=== PATIENT | female | born 1945 | race Caucasian/White ===

== ENCOUNTER 2017-04-20 22:00 | Inpatient (IN) | payer OTHER ==
[~2017-04-20] VITALS: Ht 139.7 cm; Wt 86.7 kg
[~2017-04-20 22:00] MED LIST: ENDOCET 5-3251 EACH PO; Motrin PO; Sudafed PO; Xalatan 0.005% Ophth BOTH EYES
[2017-04-20 22:48] LABS: BASOPHIL (%) 0.5 % (0-1); EOSINOPHIL (%) 2.2 % (0-5); EOSINOPHIL COUNT 0.2 K/uL (0-0.3); HEMATOCRIT 41.6 % (36.0-46.0); HEMOGLOBIN 14.2 G/DL (11.9-15.5); IMMATURE GRANULOCYTE (%) 0.3 % (0.0-0.7); LYMPHOCYTE COUNT 2.1 K/uL (1.0-2.8); MCH 31.3 PG (29.0-34.0); MCHC 34.1 G/DL (30.0-36.0); MCV 91.8 FL (83-99); MONOCYTE (%) 6.7 % (3-12); MONOCYTE COUNT 0.5 K/uL (0-0.8); NEUTROPHIL (%) 63.3 % (45-76); NEUTROPHIL COUNT 4.8 K/uL (1.8-6.4); PLATELET COUNT 208 K/uL (156-360); RBC DIS.WIDTH-CV 12.9 % (11.8-14.6); RBC DIS.WIDTH-SD 43.8 % (39-53); RED BLOOD COUNT 4.53 M/uL (3.80-5.20); WHITE BLOOD COUNT 7.6 K/uL (4.1-10.2)
[2017-04-20 22:57] LABS: CHLORIDE 110 mEq/L (99-109); POTASSIUM 3.5 mEq/L (3.7-5.4); SODIUM 145 mEq/L (136-147)
[2017-04-20 22:58] LABS: MAGNESIUM 2.1 mg/dL (1.3-2.7)
[2017-04-20 22:59] LABS: GLUCOSE 137 mg/dL (70-99)
[2017-04-20 23:03] LABS: CREATININE 0.9 mg/dL (0.6-1.3); GFR ESTIMATE (CALCULATED) > 59 mL/min/
[2017-04-20 23:04] LABS: UREA NITROGEN (BUN) 15 mg/dL (9-23)
[2017-04-20 23:07] LABS: TROP-I INTERPRETATION NEGATIVE; TROPONIN-I 0.03 ng/mL (0.0-0.30)
[2017-04-21 00:37] LABS: INTER. NORMALIZED RATIO 0.9
[2017-04-21 00:40] LABS: PTT 31.3 SEC (25-37)
[2017-04-21] MEDS ORDERED: ASPIRIN EC325 MG PO (01:18)
[2017-04-21 01:37] LABS: HDL CHOLESTEROL 64 MG/DL (Desirable>=50); LDL CHOLESTEROL 106 mg/dL (Desirable<100); NON-HDL CHOLESTEROL 129 mg/dL (Desirable<160); TOTAL CHOLESTEROL 193 mg/dL (Desirable<200); TRIGLYCERIDES 113 MG/DL (Normal: <150)
[2017-04-21 05:26] LABS: APPEARANCE CLEAR ((CLEAR)); BILIRUBIN NEGATIVE; BLOOD NEGATIVE; COLOR COLORLESS ((YELLOW)); GLUCOSE (STRIP) NEGATIVE; KETONES NEGATIVE; LEUKOCYTES NEGATIVE; NITRITE NEGATIVE; PROTEIN (STRIP) NEGATIVE; SPECIFIC GRAVITY 1.011 (1.000-1.030); UROBILINOGEN 0.2 MG/DL (0.2-1.0)
[2017-04-21 07:41] LABS: HEMOGLOBIN A1c (GLYCOHEMOGLOB) 5.3 % HGB (Below 5.7)
[2017-04-21 08:10] LABS: THYROTROPIN (TSH) 3.9 MIU/L (0.4-5.5)
[2017-04-21 13:27] LABS: TROP-I INTERPRETATION NEGATIVE; TROPONIN-I 0.02 ng/mL (0.0-0.30)
[2017-04-21 18:46] LABS: TROP-I INTERPRETATION NEGATIVE; TROPONIN-I 0.03 ng/mL (0.0-0.30)
[2017-04-21 19:14] VITALS: BP 147/67
[2017-04-21 23:36] VITALS: BP 129/73
[2017-04-22 01:18] LABS: TROP-I INTERPRETATION NEGATIVE; TROPONIN-I 0.03 ng/mL (0.0-0.30)
[2017-04-22 02:53] LABS: BASOPHIL (%) 0.6 % (0-1); BASOPHIL COUNT 0.1 K/uL (0-0.1); EOSINOPHIL (%) 1.3 % (0-5); EOSINOPHIL COUNT 0.1 K/uL (0-0.3); HEMATOCRIT 43.7 % (36.0-46.0); HEMOGLOBIN 14.7 G/DL (11.9-15.5); IMMATURE GRANULOCYTE (%) 0.3 % (0.0-0.7); LYMPHOCYTE (%) 23.2 % (15-42); LYMPHOCYTE COUNT 2.3 K/uL (1.0-2.8); MCH 30.5 PG (29.0-34.0); MCHC 33.6 G/DL (30.0-36.0); MCV 90.7 FL (83-99); MONOCYTE (%) 6.7 % (3-12); MONOCYTE COUNT 0.7 K/uL (0-0.8); NEUTROPHIL (%) 67.9 % (45-76); NEUTROPHIL COUNT 6.8 K/uL (1.8-6.4); PLATELET COUNT 228 K/uL (156-360); RBC DIS.WIDTH-SD 43.2 % (39-53); RED BLOOD COUNT 4.82 M/uL (3.80-5.20)
[2017-04-22 03:32] LABS: CHLORIDE 108 mEq/L (99-109); POTASSIUM 3.5 mEq/L (3.7-5.4); SODIUM 145 mEq/L (136-147)
[2017-04-22 03:35] VITALS: BP 115/58
[2017-04-22 03:44] LABS: GLUCOSE 103 mg/dL (70-99)
[2017-04-22 03:45] LABS: TOTAL PROTEIN 6.2 g/dL (6.4-8.3)
[2017-04-22 03:48] LABS: ALKALINE PHOSPHATASE 80 IU/L (3-129); CREATININE 0.8 mg/dL (0.6-1.3); GFR ESTIMATE (CALCULATED) > 59 mL/min/
[2017-04-22 03:49] LABS: UREA NITROGEN (BUN) 13 mg/dL (9-23)
[2017-04-22 03:50] LABS: AST (GOT) 18 IU/L (2-34)
[2017-04-22 03:51] LABS: ALT (GPT) 12 IU/L (3-49)
[2017-04-22 07:32] VITALS: BP 107/55
[2017-04-22 12:03] VITALS: BP 150/67
[2017-04-22 15:29] VITALS: BP 115/55
[2017-04-22 20:00] VITALS: BP 121/67
[2017-04-22 23:45] VITALS: BP 140/65
[2017-04-23 04:27] VITALS: BP 117/58
[2017-04-23 07:02] LABS: BASOPHIL (%) 0.6 % (0-1); BASOPHIL COUNT 0.1 K/uL (0-0.1); EOSINOPHIL (%) 1.7 % (0-5); EOSINOPHIL COUNT 0.1 K/uL (0-0.3); HEMATOCRIT 44.6 % (36.0-46.0); IMMATURE GRANULOCYTE (%) 0.4 % (0.0-0.7); LYMPHOCYTE (%) 20.9 % (15-42); LYMPHOCYTE COUNT 1.7 K/uL (1.0-2.8); MCH 30.7 PG (29.0-34.0); MCHC 33.6 G/DL (30.0-36.0); MCV 91.2 FL (83-99); MONOCYTE (%) 6.4 % (3-12); MONOCYTE COUNT 0.5 K/uL (0-0.8); NEUTROPHIL COUNT 5.8 K/uL (1.8-6.4); PLATELET COUNT 224 K/uL (156-360); RBC DIS.WIDTH-CV 12.9 % (11.8-14.6); RBC DIS.WIDTH-SD 42.6 % (39-53); RED BLOOD COUNT 4.89 M/uL (3.80-5.20); WHITE BLOOD COUNT 8.3 K/uL (4.1-10.2)
[2017-04-23 07:31] LABS: ALBUMIN 3.9 G/DL (3.2-4.8); ALKALINE PHOSPHATASE 73 IU/L (3-129); ALT (GPT) 11 IU/L (3-49); AST (GOT) 16 IU/L (2-34); CHLORIDE 106 MEQ/L (99-109); CREATININE 0.8 MG/DL (0.6-1.3); GFR ESTIMATE (CALCULATED) > 59 mL/min/; GLUCOSE 107 mg/dL (70-99); POTASSIUM 4.1 MEQ/L (3.7-5.4); SODIUM 143 MEQ/L (136-147); TOTAL PROTEIN 6.3 G/DL (6.4-8.3); UREA NITROGEN (BUN) 17 mg/dL (9-23)
[2017-04-23 08:19] VITALS: BP 123/63
[2017-04-23] MEDS ORDERED: ASPIR-LOW81 MG PO (08:19)
[2017-04-23] MEDS ORDERED: ELIQUIS5 MG PO (08:20)
[2017-04-23] MEDS ORDERED: PRAVASTATIN SOD80 MG PO (08:20)
== END 2017-04-23 10:34 | disposition home or self-care (01) | DRG 65 ==
LOC: EME 22:00 → EDOF 04-21 00:42 → 5SOUTH 04-21 00:42 → ENRESERV 04-21 00:54 → EDOF 04-21 01:14 → ENRESERV 04-21 01:15 → CANRESERV 04-21 10:31 → ENRESERV 04-21 11:06 → 5SOUTH 04-21 17:55
PROVIDERS: Emergency Medicine; Hospitalist
DX: I63.9 Cerebral infarction, unspecified (principal); Z68.41 Body mass index [BMI] 40.0-44.9, adult; I48.0 Paroxysmal atrial fibrillation; R47.01 Aphasia; R00.1 Bradycardia, unspecified; I10 Essential (primary) hypertension; H40.9 Unspecified glaucoma; E66.9 Obesity, unspecified; E87.6 Hypokalemia; I35.8 Other nonrheumatic aortic valve disorders; R29.810 Facial weakness; E78.5 Hyperlipidemia, unspecified; M19.90 Unspecified osteoarthritis, unspecified site; R47.02 Dysphasia; Z85.41 Personal history of malignant neoplasm of cervix uteri; Z82.49 Family history of ischemic heart disease and other diseases of the circulatory system; Z80.9 Family history of malignant neoplasm, unspecified
CPT/HCPCS: 70496; 70498; 70551; 71045; 80048; 80053; 80061; 81003; 83036; 83735; 84443; 84484; 85025; 85610; 85730; 90686; 92523 GN; 93005; 93306; 99281; 99285; G9162 GN CL; G9163 GN CJ; J1650; J7030; J7050

== ENCOUNTER 2017-09-10 10:25 | Inpatient (IN) | payer OTHER ==
[~2017-09-10] VITALS: Ht 162.6 cm; Wt 93.2 kg
[~2017-09-10 10:25] MED LIST changes: +ASPIR-LOW81 MG PO; +ASPIRIN EC325 MG PO; +ELIQUIS5 MG PO; +PRAVASTATIN SOD80 MG PO
[2017-09-10 11:06] LABS: APPEARANCE TURBID ((CLEAR)); BILIRUBIN NEGATIVE; BLOOD SMALL; COLOR AMBER ((YELLOW)); GLUCOSE (STRIP) 50; KETONES NEGATIVE; LEUKOCYTES SMALL; NITRITE NEGATIVE; PROTEIN (STRIP) 100; SPECIFIC GRAVITY 1.029 (1.000-1.030)
[2017-09-10 11:12] LABS: BASOPHIL (%) 0.2 % (0-1); BASOPHIL COUNT 0.1 K/uL (0-0.1); EOSINOPHIL (%) 0 % (0-5); HEMATOCRIT 45.2 % (36.0-46.0); HEMOGLOBIN 15.7 G/DL (11.9-15.5); IMMATURE GRANULOCYTE (%) 0.8 % (0.0-0.7); LYMPHOCYTE (%) 3.5 % (15-42); MCH 30.9 PG (29.0-34.0); MCHC 34.7 G/DL (30.0-36.0); MONOCYTE (%) 4.4 % (3-12); MONOCYTE COUNT 1.3 K/uL (0-0.8); NEUTROPHIL (%) 91.1 % (45-76); NEUTROPHIL COUNT 26.2 K/uL (1.8-6.4); PLATELET COUNT 207 K/uL (156-360); RBC DIS.WIDTH-CV 12.5 % (11.8-14.6); RBC DIS.WIDTH-SD 40.9 % (39-53); RED BLOOD COUNT 5.08 M/uL (3.80-5.20); WHITE BLOOD COUNT 28.8 K/uL (4.1-10.2)
[2017-09-10 11:20] LABS: INTER. NORMALIZED RATIO 2.2
[2017-09-10 11:22] LABS: ALBUMIN 4.2 g/dL (3.2-4.8); CHLORIDE 104 mEq/L (99-109); POTASSIUM 3.9 mEq/L (3.7-5.4); SODIUM 139 mEq/L (136-147)
[2017-09-10 11:25] LABS: GLUCOSE 160 mg/dL (70-99); TOTAL PROTEIN 7.4 g/dL (6.4-8.3)
[2017-09-10 11:27] LABS: TOTAL BILIRUBIN 1.7 mg/dL (0.0-1.0)
[2017-09-10 11:28] LABS: ALKALINE PHOSPHATASE 95 IU/L (3-129); CREATININE 0.9 mg/dL (0.6-1.3); GFR ESTIMATE (CALCULATED) > 59 mL/min/
[2017-09-10 11:29] LABS: UREA NITROGEN (BUN) 21 mg/dL (9-23)
[2017-09-10 11:30] LABS: AST (GOT) 57 IU/L (2-34)
[2017-09-10 11:31] LABS: ALT (GPT) 53 IU/L (3-49)
[2017-09-10 11:32] LABS: LIPASE 7 U/L (1.0-51.0)
[2017-09-10 11:32] LABS: EPITHELIAL CELLS 2+ /HPF; MUCUS NONE SEEN /LPF
[2017-09-10 11:33] LABS: BACTERIA 2+ /HPF
[2017-09-10 11:38] LABS: AMORPHOUS URATES CRYSTALS 2+
[2017-09-10] MEDS ORDERED: LO-DOSE ASPIRIN81 M1 PO (13:26)
[2017-09-10] MEDS ORDERED: METOPROLOL TART25 MG PO (13:27)
[2017-09-10] MEDS ORDERED: CENTURY ULTIMA1 EAC3 PO (13:27)
[2017-09-10] MEDS ORDERED: VITAMIN D31000 UNIT PO (13:29)
[2017-09-10] MEDS ORDERED: TYLENOL REGULA325 MG PO (13:29)
[2017-09-10 16:43] VITALS: BP 146/77
[2017-09-10 19:40] VITALS: BP 111/56
[2017-09-10 23:52] VITALS: BP 120/76
[2017-09-11 04:12] VITALS: BP 140/65
[2017-09-11 06:11] LABS: HEMATOCRIT 42.9 % (36.0-46.0); HEMOGLOBIN 14.4 G/DL (11.9-15.5); MCH 30.9 PG (29.0-34.0); MCHC 33.6 G/DL (30.0-36.0); MCV 92.1 FL (83-99); PLATELET COUNT 194 K/uL (156-360); RBC DIS.WIDTH-CV 13.1 % (11.8-14.6); RBC DIS.WIDTH-SD 44.1 % (39-53); RED BLOOD COUNT 4.66 M/uL (3.80-5.20); WHITE BLOOD COUNT 21.8 K/uL (4.1-10.2)
[2017-09-11 06:34] LABS: ALBUMIN 3.6 G/DL (3.2-4.8); ALKALINE PHOSPHATASE 140 IU/L (3-129); ALT (GPT) 233 IU/L (3-49); AST (GOT) 260 IU/L (2-34); CHLORIDE 107 MEQ/L (99-109); CREATININE 0.7 MG/DL (0.6-1.3); GFR ESTIMATE (CALCULATED) > 59 mL/min/; GLUCOSE 147 mg/dL (70-99); SODIUM 142 MEQ/L (136-147); TOTAL BILIRUBIN 1.5 MG/DL (0.0-1.0); TOTAL PROTEIN 5.9 G/DL (6.4-8.3); UREA NITROGEN (BUN) 22 mg/dL (9-23)
[2017-09-11 08:58] VITALS: BP 123/60
[2017-09-11 11:49] VITALS: BP 104/60
[2017-09-11 12:29] LABS: INTER. NORMALIZED RATIO 1.7
[2017-09-11 12:31] LABS: PTT 31.4 SEC (25-37)
[2017-09-11 17:11] VITALS: BP 128/73
[2017-09-11 19:15] VITALS: BP 131/67
[2017-09-11 23:20] VITALS: BP 108/54
[2017-09-12 03:52] VITALS: BP 112/55
[2017-09-12 06:14] LABS: HEMATOCRIT 40.5 % (36.0-46.0); HEMOGLOBIN 13.3 G/DL (11.9-15.5); MCH 30.1 PG (29.0-34.0); MCHC 32.8 G/DL (30.0-36.0); MCV 91.6 FL (83-99); PLATELET COUNT 202 K/uL (156-360); RBC DIS.WIDTH-CV 12.9 % (11.8-14.6); RBC DIS.WIDTH-SD 43.8 % (39-53); RED BLOOD COUNT 4.42 M/uL (3.80-5.20); WHITE BLOOD COUNT 13.2 K/uL (4.1-10.2)
[2017-09-12 06:37] LABS: ALBUMIN 3.1 G/DL (3.2-4.8); ALKALINE PHOSPHATASE 131 IU/L (3-129); ALT (GPT) 131 IU/L (3-49); CHLORIDE 108 MEQ/L (99-109); CREATININE 0.7 MG/DL (0.6-1.3); DIRECT BILIRUBIN 0.3 mg/dL (0.0-0.3); GFR ESTIMATE (CALCULATED) > 59 mL/min/; GLUCOSE 122 mg/dL (70-99); POTASSIUM 4.3 MEQ/L (3.7-5.4); SODIUM 141 MEQ/L (136-147); TOTAL PROTEIN 5.2 G/DL (6.4-8.3); UREA NITROGEN (BUN) 14 mg/dL (9-23)
[2017-09-12 06:41] LABS: AST (GOT) 68 IU/L (2-34); TOTAL BILIRUBIN 0.8 MG/DL (0.0-1.0)
[2017-09-12 08:20] VITALS: BP 102/56
[2017-09-12 12:29] VITALS: BP 139/73
[2017-09-12 17:22] VITALS: BP 95/53
[2017-09-12 20:32] VITALS: BP 110/58
[2017-09-13 00:21] VITALS: BP 106/58
[2017-09-13 05:00] VITALS: BP 140/84
[2017-09-13 05:57] LABS: HEMATOCRIT 39.8 % (36.0-46.0); HEMOGLOBIN 13.5 G/DL (11.9-15.5); MCH 30.8 PG (29.0-34.0); MCHC 33.9 G/DL (30.0-36.0); MCV 90.7 FL (83-99); PLATELET COUNT 250 K/uL (156-360); RBC DIS.WIDTH-CV 13.1 % (11.8-14.6); RBC DIS.WIDTH-SD 43.2 % (39-53); RED BLOOD COUNT 4.39 M/uL (3.80-5.20); WHITE BLOOD COUNT 9.1 K/uL (4.1-10.2)
[2017-09-13 06:40] VITALS: BP 145/67
[2017-09-13 06:43] LABS: ALBUMIN 3.1 G/DL (3.2-4.8); ALKALINE PHOSPHATASE 101 IU/L (3-129); ALT (GPT) 86 IU/L (3-49); AST (GOT) 23 IU/L (2-34); CHLORIDE 110 MEQ/L (99-109); CREATININE 0.7 MG/DL (0.6-1.3); GFR ESTIMATE (CALCULATED) > 59 mL/min/; GLUCOSE 123 mg/dL (70-99); SODIUM 146 MEQ/L (136-147); TOTAL BILIRUBIN 0.6 MG/DL (0.0-1.0); TOTAL PROTEIN 5.2 G/DL (6.4-8.3); UREA NITROGEN (BUN) 12 mg/dL (9-23)
[2017-09-13] MEDS ORDERED: DILTIAZEM 24HR120 MG PO (10:39)
[2017-09-13] MEDS ORDERED: METRONIDAZOLE500 MG PO (10:39)
[2017-09-13] MEDS ORDERED: CIPRO500 MG PO (10:39)
== END 2017-09-13 12:10 | disposition home health service (06) | DRG 445 ==
LOC: EME 10:25 → EDOF 13:53 → 2EAST 13:53 → ENRESERV 13:55 → 2EAST 16:18
PROVIDERS: Emergency Medicine; Hospitalist; Internal Medicine; Radiology Diagnostic Radiology
DX: K80.12 Calculus of gallbladder with acute and chronic cholecystitis without obstruction (principal); Z68.41 Body mass index [BMI] 40.0-44.9, adult; I35.8 Other nonrheumatic aortic valve disorders; I48.2 Chronic atrial fibrillation; I48.0 Paroxysmal atrial fibrillation; E66.9 Obesity, unspecified; E78.5 Hyperlipidemia, unspecified; I11.9 Hypertensive heart disease without heart failure; M19.90 Unspecified osteoarthritis, unspecified site; K82.8 Other specified diseases of gallbladder; Z90.710 Acquired absence of both cervix and uterus; Z79.01 Long term (current) use of anticoagulants; Z79.82 Long term (current) use of aspirin; Z86.73 Personal history of transient ischemic attack (TIA), and cerebral infarction without residual deficits; Z87.891 Personal history of nicotine dependence; Z88.0 Allergy status to penicillin; Z82.3 Family history of stroke; Z82.49 Family history of ischemic heart disease and other diseases of the circulatory system; Z83.3 Family history of diabetes mellitus
CPT/HCPCS: 49405; 71045; 74177; 74181; 80048; 80053; 80076; 81003; 83690; 85025; 85027; 85610; 85730; 87070; 87075; 87205; 93005; 99281; 99285; C1729; C1769; J1160; J1170; J1956; J2270; J2405; J3010; J7030; J7042; S0030; S0074

== ENCOUNTER → 2017-10-17 | Outpatient (CLI) | payer OTHER ==
[~2017-10-17] MED LIST changes: +CENTURY ULTIMA1 EAC3 PO; +CIPRO500 MG PO; +DILTIAZEM 24HR120 MG PO; +LO-DOSE ASPIRIN81 M1 PO; +METOPROLOL TART25 MG PO; +METRONIDAZOLE500 MG PO; +TYLENOL REGULA325 MG PO; +VITAMIN D31000 UNIT PO
== END | disposition home or self-care (01) ==
LOC: RAD 12:32
PROC: 0FP430Z Removal of Drainage Device from Gallbladder, Percutaneous Approach (ICD-10-PCS; principal; 2017-10-17)
DX: T85.628A Displacement of other specified internal prosthetic devices, implants and grafts, initial encounter (principal)
CPT/HCPCS: 47531; 74176